=== PATIENT | male | born 1985 | race Caucasian/White ===

== ENCOUNTER 2016-11-26 07:00 | Emergency (ER) | payer OTHER | END 2016-11-26 11:00 | disposition other institution (70) | LOC: ER 07:00 | DX: A41.9 Sepsis, unspecified organism (principal); I26.90 Septic pulmonary embolism without acute cor pulmonale; J45.909 Unspecified asthma, uncomplicated; F17.210 Nicotine dependence, cigarettes, uncomplicated | CPT/HCPCS: 36415; 80307; 87502; 96361; 96365; 96366; 96367; 96375; J1885; J3370; Q9967 ==

== ENCOUNTER 2017-05-22 02:58 | Emergency (ER) | payer SELFPAY | END 2017-05-22 04:50 | disposition home or self-care (01) | LOC: ER 02:58 | DX: T40.1X1A Poisoning by heroin, accidental (unintentional), initial encounter (principal); F17.210 Nicotine dependence, cigarettes, uncomplicated | CPT/HCPCS: 36415 ==